=== PATIENT | male | born 1980 | race Caucasian/White ===

== ENCOUNTER 2018-03-07 11:31 | Emergency (ER) | payer SELFPAY ==
[~2018-03-07] VITALS: Ht 177.8 cm; Wt 127.3 kg
[~2018-03-07 11:31] MED LIST: DURICEF PO; NO HOME MEDICATIONS
[2018-03-07 11:33] VITALS: BP 162/89; TEMP 97.8
[2018-03-07 12:51] LABS: BASO # 0.1 (0.0-0.2); BASO % 0.9 % (0.0-2.0); EOS # 0.2 (0.0-0.7); EOS % 2.3 % (0-4.0); GRAN # 3.1 (1.4-6.5); GRAN % 48.5 % (42.2-75.2); HEMATOCRIT 44.5 % (42.0-52.0); HEMOGLOBIN 15.4 g/dl (13.5-18.0); LYMPH # 2.5 (1.2-3.4); LYMPH % 39.2 % (20.0-51.0); MEAN CELL VOLUME 90 fl (80.0-100.0); MEAN CORPUSCULAR HEMOGLOBIN 31 pg (27.0-31.0); MEAN CORPUSCULAR HGB CONC 35 g/dl (33.0-37.0); MEAN PLATELET VOLUME 9.6 fl (7.4-10.4); MONO # 0.6 (0.1-0.6); MONO % 8.6 % (1.7-9.3); PLATELET COUNT 295 K/mm3 (130-400); RED BLOOD COUNT 4.97 M/mm3 (4.20-5.60); REDCELL DISTRIBUTION WIDTH-CV 12.2 % (11.5-14.5)
[2018-03-07 13:00] LABS: CREATININE, serum 0.85 mg/dL (0.66-1.25)
[2018-03-07 15:46] VITALS: PULSE 72
== END 2018-03-07 15:46 | disposition home or self-care (01) ==
LOC: COL.ER 11:31
PROVIDERS: Emergency Medicine
DX: H53.2 Diplopia (principal)
CPT/HCPCS: A9585

== ENCOUNTER 2021-01-05 10:48 | Day surgery (SDC) | payer BC ==
[~2021-01-05] VITALS: Ht 177.8 cm; Wt 141.5 kg
[2021-01-05 11:51] VITALS: BP 127/83; PULSE 100; TEMP 95
[2021-01-05] MEDS ORDERED: ASPIRIN 81M81 MG/TA2 PO (12:51)
[2021-01-05] MEDS ORDERED: DIOVAN 80MG80 MG PO (12:52)
[2021-01-05] MEDS ORDERED: TYLENOL 500MG500 MG PO (12:54)
[2021-01-05 15:05] VITALS: BP 103/57; PULSE 74; TEMP 97.7
--- NOTE | 2021-01-05 15:05 | NUR ---
Pt to [facility] bay 1 via cart from PACU. Pt awake and alert. Denies pain or nausea. Pt tolerating Po fluids without difficulties. Girlfriend in room. VSS. Will continue to monitor. Pineda catheter to dependant drainage. Urine clear and pale straw in color. Stat lock in place. Call light within reach. Side rails up x2.
[2021-01-05 15:13] VITALS: TEMP 97.7
[2021-01-05 15:20] VITALS: BP 105/66; PULSE 69
--- NOTE | 2021-01-05 15:20 | NUR ---
Pt continues to rest. Denies needs. Call light within reach.
[2021-01-05 15:35] VITALS: BP 104/65; PULSE 65
--- NOTE | 2021-01-05 15:35 | NUR ---
Pt continues to rest. in to see pt. Call light within reach.
[2021-01-05 15:55] VITALS: BP 106/55; PULSE 65
--- NOTE | 2021-01-05 15:55 | NUR ---
Pineda care education provided. Leg bag and education on switching between the bags provided. Pt and girlfriend voice understanding. Supplies provided.
--- NOTE | 2021-01-05 16:15 | NUR ---
Discharge instructions reviewed. Pt voices understanding. IV site discontinued with all parts intact. Pt up to dress. Call light within reach.
--- NOTE | 2021-01-05 16:30 | NUR ---
Pt escorted to private car via wheel chair. Pt accompanied home by his girlfriend.
== END 2021-01-05 16:30 | disposition home or self-care (01) ==
LOC: SDCO 10:48
DX: N35.911 Unspecified urethral stricture, male, meatal (principal); N41.1 Chronic prostatitis; I10 Essential (primary) hypertension; E66.9 Obesity, unspecified; Z87.891 Personal history of nicotine dependence; Z79.899 Other long term (current) drug therapy
CPT/HCPCS: C1769; C1894; J0690; J2405; J2704; J3010; J7120